=== PATIENT | male | born 1975 | race Caucasian/White ===

== ENCOUNTER 2017-03-12 03:27 | Emergency (ER) | payer BC, OTHER ==
[~2017-03-12] VITALS: Ht 165.1 cm; Wt 97.0 kg
[~2017-03-12 03:27] MED LIST: PAIN MED
[2017-03-12 03:40] VITALS: Ht 165.1 cm; Wt 97.0 kg
[2017-03-12] MEDS ORDERED: NAPR-260 PO (04:43)
--- NOTE | 2017-03-12 06:07 | ERD ---
ER Documentation Chief Complaint Date/Time DATE: 03/12/17 TIME: 06:04 Chief Complaint TRINI leg pain x 2 months. Denies injury/trauma HPI This patient is a 41-year-old male with no significant medical history presenting to the emergency department with complaints of a "tingling" feeling in his bilateral legs ongoing intermittently for the past 3 months. The patient denies having history of diabetes. He states that symptoms are worse with standing. Symptoms are alleviated with walking. The patient denies fevers , chills, or other symptoms currently. ROS All systems reviewed and are negative except as per history of present illness. Medications Home Meds Active Scripts Naproxen* (Naprosyn*) 500 Mg Tablet, 500 MG PO BID Y for PAIN AND/OR INFLAMMATION, #30 TAB Prov:GREGOR WHITT PA-C 03/12/17 Reported Medications [Pain Med] No Conflict Check 10/28/10 Allergies Allergies: Coded Allergies: No Known Allergy (Verified , 12/08/11) PMhx/Soc History of Surgery: Yes (APPY) Anesthesia Reaction: No Hx Neurological Disorder: No Hx Respiratory Disorders: No Hx Cardiac Disorders: No Hx Psychiatric Problems: No Hx Miscellaneous Medical Probl: No Hx Alcohol Use: No Hx Substance Use: No Hx Tobacco Use: No Smoking Status: Never smoker Physical Exam Vitals Vital Signs Date Time Temp Pulse Resp B/P Pulse Ox O2 Delivery O2 Flow Rate FiO2 03/12/17 03:40 98.7 63 18 111/69 100 Physical Exam Const: Obese male in no acute distress. Head: Atraumatic Eyes: Normal Conjunctiva ENT: Normal External Ears, Nose and Mouth. Neck: Full range of motion..~ No meningismus. Resp: Clear to auscultation bilaterally Cardio: Regular rate and rhythm, no murmurs Abd: Soft, non tender, non distended. Normal bowel sounds Skin: No petechiae or rashes Back: No midline or flank tenderness Ext: No cyanosis, or edema. The patient has some decreased sensation to bilateral plantar surfaces. Neur: Awake and alert Psych: Normal Mood and Affect Procedures/MDM 41-year-old male presents to the emergency department with complaints of tingling sensation to bilateral lower extremities. On exam the patient has glossitis noted to bilateral lower extremities below the knee. He has decreased sensation of the plantar surfaces of his feet bilaterally. History and clinical examination is concerning for peripheral neuropathy. The patient was urged to follow-up with his primary care physician closely for further testing and screening for diabetes and other chronic illnesses. He agreed with the discharge plan and diagnosis. He is given a prescription for naproxen to manage his symptoms as an outpatient. Strict ER return precautions were discussed. Close follow-up with a primary care physician was advised. I low suspicion for life-threatening emergency at this time. I do not feel Accu-Chek was indicated at this time because the patient had no signs of diabetic ketoacidosis or other emergencies. Departure Diagnosis: Primary Impression: Peripheral neuropathy Condition: Fair Patient Instructions: Neuropathy, Peripheral Additional Instructions: Follow up with your PCP within the next 1-3 days for a repeat evaluation. If you require a referral to a specialist, your Primary Care Provider may be able to provide this for you. In most patient cases, a referral is not required. If you have further questions regarding this matter, please ask your Primary Care Provider. Return the the emergency department immediately if symptoms worsen or change. If you have any questions regarding medications, ask your pharmacist or us before you leave. If any adverse reactions, occur while taking your medications, discontinue the treatment and return to the emergency department immediately. If any new or worsening symptoms, uncontrolled fevers, or other unexplained symptoms occur, return to the emergency department immediately. Take your medications as directed, and complete the entire course of treatment. GREGOR WHITT PA-C Mar 12, 2017 06:07
== END 2017-03-12 05:07 | disposition home or self-care (01) ==
LOC: FTE 03:27
DX: G62.9 Polyneuropathy, unspecified (principal)
CPT/HCPCS: 99283

== ENCOUNTER 2017-08-10 08:44 | Emergency (ER) | payer OTHER ==
[~2017-08-10] VITALS: Wt 88.6 kg
[~2017-08-10 08:44] MED LIST changes: +NAPR-260 PO
[2017-08-10] MEDS ORDERED: ONDANSETRON (ODT) 4 MG TAB ODT STA (09:34)
[2017-08-10] MEDS ORDERED: FAMOTIDINE 20 MG TAB PO STA (09:34)
[2017-08-10] MEDS ORDERED: SOD CHLORIDE 0.9% 500 ML IV STA (09:34)
[2017-08-10 09:59] LABS: BASOPHIL # 0.1 10^3/ul (0.0-0.1); BASOPHILS % 0.5 % (0.0-2.0); EOSINOPHILS # 0.2 10^3/ul (0.0-0.5); EOSINOPHILS % 2.4 % (0.0-7.0); HEMATOCRIT 44.6 % (42.0-52.0); HEMOGLOBIN 14.4 g/dl (14.0-18.0); LYMPHOCYTES # 3.7 10^3/ul (0.8-2.9); LYMPHOCYTES % 37.1 % (15.0-51.0); MEAN CORPUSCULAR HEMOGLOBIN 24.6 pg (29.0-33.0); MEAN CORPUSCULAR HGB CONC 32.3 g/dl (32.0-37.0); MEAN CORPUSCULAR VOLUME 76.1 fl (82.0-101.0); MEAN PLATELET VOLUME 10.1 fl (7.4-10.4); MONOCYTE # 0.7 10^3/ul (0.3-0.9); MONOCYTES % 7.5 % (0.0-11.0); NEUTROPHIL # 5.2 10^3/ul (1.6-7.5); NEUTROPHILS % 52.4 % (39.0-77.0); PLATELET COUNT 237 10^3/UL (140-415); RED BLOOD COUNT 5.86 10^6/ul (4.70-6.10); RED CELL DISTRIBUTION WIDTH 14.7 % (11.5-14.5); WHITE BLOOD COUNT 9.9 10^3/ul (4.8-10.8)
[2017-08-10 10:20] LABS: ADD UMIC NO; UR ASCORBIC ACID NEGATIVE (NEGATIVE); UR BILIRUBIN (Dip) NEGATIVE (NEGATIVE); UR BLOOD (Dip) NEGATIVE (NEGATIVE); UR CLARITY CLEAR (CLEAR); UR COLOR STRAW (YELLOW); UR GLUCOSE (Dip) NEGATIVE (NEGATIVE); UR KETONES (Dip) NEGATIVE (NEGATIVE); UR LEUKOCYTE ESTERASE (Dip) NEGATIVE Leu/ul (NEGATIVE); UR NITRITE (Dip) NEGATIVE (NEGATIVE); UR SPECIFIC GRAVITY (Dip) 1.012 (1.003-1.030); UR TOTAL PROTEIN (Dip) NEGATIVE (NEGATIVE); UR UROBILINOGEN (Dip) NEGATIVE (NEGATIVE)
[2017-08-10 10:38] LABS: ALBUMIN 4.3 g/dl (3.3-4.9); ALBUMIN/GLOBULIN RATIO 1.26; BILIRUBIN,INDIRECT 0.2 mg/dl (0-1.1); BILIRUBIN,TOTAL 0.2 mg/dl (0.2-1.3); CALCIUM 9.8 mg/dl (8.4-10.2); CREATININE 1.02 mg/dl (0.61-1.24); POTASSIUM 3.8 mmol/L (3.5-5.1); TOTAL PROTEIN 7.7 g/dl (6.1-8.1)
--- NOTE | 2017-08-10 11:24 | RADRPT ---
PROCEDURE: CT Abdomen and Pelvis without contrast. CLINICAL INDICATION: Abdominal pain TECHNIQUE: CT scan of the abdomen and pelvis was performed on a multidetector high-resolution CT s canner without intravenous contrast. Coronal and sagittal reformatted images were obtained from the axial source images. Images were reviewed on a high-resolution PACS workstation. The total exam CTD I equals 17mGy and the total exam DLP equals 1096mGy-cm. One or more of the following dose reduction techniques were used: Automated exposure control, Adjustment of the mA and/or kV according to patie nt size, and/or use of iterative reconstruction technique. DICOM images are available. COMPARISON: Abdominal CT 07/27/2012 FINDINGS: Evaluation of the solid organs is limited given the lack of intravenous contrast administration. The lung bases are clear. Hypoattenuation of the liver. The pancreas, spleen, and adrenals are grossly unremarkable. No focal pericholecystic inflammatory changes. No hydronephrosis. No renal or ureteral stone. No bowel obstruction. The appendix is not visualized but there is no focal inflammatory stranding i n the right lower quadrant. No significant retroperitoneal lymphadenopathy, ascites or evidence of pneumoperitoneum. IMPRESSION: No acute intra abdominal process identified. No evidence of bowel obstruction or appendicitis. No renal or ureteral stone. Hepatic steatosis. RPTAT: AA .Stephen Cox MD, Date Time Electronically viewed and signed by .Stephen Cox MD, on 08/10/2017 11:23 .T/
--- NOTE | 2017-08-10 11:40 | ERD ---
ER Documentation Chief Complaint Chief Complaint BACK PAIN, ABD PAIN, BLOATING, NO N/V/D HPI 42y/o male patient with no significant medical history, presents to the emergency department c/o gradual onset of right lower quadrant abdominal pain, constant, that started 2 days ago. The pain is colicky, rated 6/10, radiated to the right flank. The symptoms are associated with nausea and decreased appetite. Aggravating factors: Unknown. Alleviating factors: Unknown. Denies fever, chills, no constipation, no diarrhea, no vomiting. No history of previous episodes. Treatment attempted: None. Previous evaluation: None. History was given by patient. ROS SYSTEMIC symptoms: no fever, chills, no night sweats, no weight loss EYE symptoms: No blurred vision, no eye discharge OTOLARYNGEAL symptoms: No hearing loss. No ear pain, no sore throat CARDIOVASCULAR symptoms: No chest pain or discomfort, no palpitations. PULMONARY symptoms: No dyspnea, no cough, no wheezing. GASTROINTESTINAL symptoms: Per HPI MUSCULOSKELETAL symptoms: No arthralgias, no muscle aches. NEUROLOGY symptoms: No confusion, no syncope, no numbness or tingling. SKIN: No rashes Medications Home Meds Active Scripts Metoclopramide* (Reglan*) 10 Mg Tablet, 10 MG PO Q6 Y for NAUSEA AND/OR VOMITING for 3 Days, #10 TAB Prov:ZEB KIRKLAND MD 08/10/17 Ranitidine Hcl* (Zantac*) 150 Mg Tablet, 150 MG PO BID Y for EPIGASTRIC PAIN, # 30 TAB Prov:ZEB KIRKLAND MD 08/10/17 Hydrocodone/Acetaminophen ([place] 5-325 Tablet) 1 Each Tablet, 1 TAB PO Q6H Y for PAIN, #12 TAB Prov:ZEB KIRKLAND MD 08/10/17 Naproxen* (Naprosyn*) 500 Mg Tablet, 500 MG PO BID Y for PAIN AND/OR INFLAMMATION, #30 TAB Prov:GREGOR WHITT PA-C 03/12/17 Reported Medications [Pain Med] No Conflict Check 10/28/10 Allergies Allergies: Coded Allergies: No Known Allergy (Verified , 08/10/17) PMhx/Soc History of Surgery: Yes (APPY) Anesthesia Reaction: No Hx Neurological Disorder: No Hx Respiratory Disorders: No Hx Cardiac Disorders: No Hx Psychiatric Problems: No Hx Miscellaneous Medical Probl: No Hx Alcohol Use: No Hx Substance Use: No Hx Tobacco Use: No Smoking Status: Never smoker Physical Exam Vitals Vital Signs Date Time Temp Pulse Resp B/P Pulse Ox O2 Delivery O2 Flow Rate FiO2 08/10/17 08:48 97.6 58 17 109/57 100 Physical Exam Patient is in no acute distress, vital signs stable. Alert and fully oriented. EYES: PERRLA, EOMI, Sclera and conjunctiva appear normal. EARS: Canals clear, tympanic membranes WNL THROAT: Normal oropharynx. NECK: Supple, No lymphadenopathy. Full ROM without pain or tenderness. HEART: RRR, no rubs, murmurs, clicks or gallops. LUNGS: Clear to auscultation. ABDOMEN: Soft, mild tenderness to deep palpation of right lower quadrant, no masses, no peritoneal signs EXTREMITIES: No edema bilaterally. BACK: Full ROM, no deformity, normal back exam NEURO: Cranial nerves grossly intact, no motor or sensory deficit Result Diagram: 08/10/17 0950 08/10/17 0950 Results 24 hrs Laboratory Tests Test 08/10/17 09:50 White Blood Count 9.910^3/ul Red Blood Count 5.8610^6/ul Hemoglobin 14.4g/dl Hematocrit 44.6% Mean Corpuscular Volume 76.1fl Mean Corpuscular Hemoglobin 24.6pg Mean Corpuscular Hemoglobin Concent 32.3g/dl Red Cell Distribution Width 14.7% Platelet Count 12165^3/UL Mean Platelet Volume 10.1fl Neutrophils % 52.4% Lymphocytes % 37.1% Monocytes % 7.5% Eosinophils % 2.4% Basophils % 0.5% Nucleated Red Blood Cells % 0.0/100WBC Neutrophils # 5.210^3/ul Lymphocytes # 3.710^3/ul Monocytes # 0.710^3/ul Eosinophils # 0.210^3/ul Basophils # 0.110^3/ul Nucleated Red Blood Cells # 0.010^3/ul Urine Color STRAW Urine Clarity CLEAR Urine pH 5.0 Urine Specific [place] 1.012 Urine Ketones NEGATIVEmg/dL Urine Nitrite NEGATIVEmg/dL Urine Bilirubin NEGATIVEmg/dL Urine Urobilinogen NEGATIVEmg/dL Urine Leukocyte Esterase NEGATIVELeu/ul Urine Hemoglobin NEGATIVEmg/dL Urine Glucose NEGATIVEmg/dL Urine Total Protein NEGATIVEmg/dl Sodium Level 142mmol/L Potassium Level 3.8mmol/L Chloride Level 100mmol/L Carbon Dioxide Level 31mmol/L Anion Gap 15 Blood Urea Nitrogen 15mg/dl Creatinine 1.02mg/dl Glucose Level 105mg/dl Calcium Level 9.8mg/dl Total Bilirubin 0.2mg/dl Direct Bilirubin 0.00mg/dl Indirect Bilirubin 0.2mg/dl Aspartate Amino Transf (AST/SGOT) 27IU/L Alanine Aminotransferase (ALT/SGPT) 42IU/L Alkaline Phosphatase 67IU/L Total Protein 7.7g/dl Albumin 4.3g/dl Globulin 3.40g/dl Albumin/Globulin Ratio 1.26 Lipase 132U/L Current Medications Medications (Trade) Dose Ordered Sig/Bianca Route PRN Reason Start Time Stop Time Status Last Admin Dose Admin Sodium Chloride (NS) 500 ml @ 500 mls/hr Q1H STAT IV 08/10/17 09:34 08/10/17 10:33 DC 08/10/17 09:41 Famotidine (Pepcid) 20 mg ONCE STAT PO 08/10/17 09:34 08/10/17 09:37 DC 08/10/17 09:40 Ondansetron HCl (Zofran Odt) 4 mg ONCE STAT ODT 08/10/17 09:34 08/10/17 09:37 DC 08/10/17 09:40 [place] [id number] Radiology Main Line: [phone] DIAGNOSTIC IMAGING REPORT Patient: BRENDAN MARRUFO : 1975 Age: 42 Sex: M MR #: [id number] DOS: 08/10/17 0934 Ordering MD: ZEB KIRKLAND MD Location: [facility] Room/Bed: PROCEDURE: CT Abdomen and Pelvis without contrast. CLINICAL INDICATION: Abdominal pain TECHNIQUE: CT scan of the abdomen and pelvis was performed on a multidetector high-resolution CT scanner without intravenous contrast. Coronal and sagittal reformatted images were obtained from the axial source images. Images were reviewed on a high-resolution PACS workstation. The total exam CTDI equals 17mGy and the total exam DLP equals 1096mGy-cm. One or more of the following dose reduction techniques were used: Automated exposure control, Adjustment of the mA and/or kV according to patient size, and/or use of iterative reconstruction technique. DICOM images are available. COMPARISON: Abdominal CT 07/27/2012 FINDINGS: Evaluation of the solid organs is limited given the lack of intravenous contrast administration. The lung bases are clear. Hypoattenuation of the liver. The pancreas, spleen, and adrenals are grossly unremarkable. No focal pericholecystic inflammatory changes. No hydronephrosis. No renal or ureteral stone. No bowel obstruction. The appendix is not visualized but there is no focal inflammatory stranding in the right lower quadrant. No significant retroperitoneal lymphadenopathy, ascites or evidence of pneumoperitoneum. IMPRESSION: No acute intra abdominal process identified. No evidence of bowel obstruction or appendicitis. No renal or ureteral stone. Hepatic steatosis. RPTAT: AA .Stephen Cox MD, MD Date Time Electronically viewed and signed by .Stephen Cox MD, MD on 08/10/2017 11:23 .T/ CC: ZEB KIRKLAND MD Procedures/[facility] 42y/o male patient previously healthy, presents to the ED c/o right lower quadrant abdominal pain for 2 days. Vital signs stable, Physical exam unremarkable, except for mild tenderness to deep palpation in right lower quadrant. No peritoneal signs. Differential diagnosis include but not limited to: UTI, colitis, gastroenteritis, kidney stones, irritable bowel syndrome, inflammatory bowel syndrome, malabsorption syndrome, cholelithiasis, food intolerance, medication side effect, pancreatitis, diverticulitis, bowel obstruction. Pertinent Data: Labs: CBC: normal, CMP: normal kidney and liver function, normal electrolytes. Lipase: normal Radiology: CT abdomen: No acute intra abdominal process identified. No evidence of bowel obstruction or appendicitis. No renal or ureteral stone. Hepatic steatosis. Physical examination and clinical presentation consistent most likely with noninfectious gastroenteritis. During the ED course the patient remained stable, no new complaints. The patient received treatment with IV fluids, Pepcid, Zofran presenting overall improvement of the symptoms. Results and clinical impression discussed with patient who agrees with management. The patient is stable to be treated outpatient and will be discharged home with a Rx for ranitidine, Reglan and [place], some side effects of prescribed medications (headache, rash, nausea, vomiting, diarrhea, drowsiness, habituation, bleeding, hypertension, interactions with other medications) were reviewed. The patient was instructed to follow up with the primary care provider in the next 48h. If symptoms persist, worsen or new symptoms develop, then patient should return to the ED immediately. Instructions explained and given directly by me to the patient in Nepali with acknowledgment and demonstrated understanding. Disclaimer: Inadvertent spelling and grammatical errors are likely due to EHR/ dictation software use and do not reflect on the overall quality of patient care. Also, please note that the electronic time recorded on this note does not necessarily reflect the actual time of the patient encounter. Departure Diagnosis: Primary Impression: Gastroenteritis Additional Impression: Abdominal pain Condition: Stable Additional Instructions: Call your primary care doctor TOMORROW for an appointment during the next 1-2 days. See the doctor sooner or return here if your condition worsens before your appointment time. Thank you very much for allowing us to participate in your care. Your health and safety is our top priority at [facility]. Have prescriptions filled and follow precisely the directions on the label. Follow-up with primary care provider during the next 4 days and bring all the information and medications prescribed. If illness has not improved in 2 days, then make an appointment with primary care provider. If the provider is unavailable, return to the Emergency Department immediately. ZEB KIRKLAND MD Aug 10, 2017 11:40
[2017-08-10] MEDS ORDERED: METO10TA92 PO (11:58)
[2017-08-10] MEDS ORDERED: HYDR-906 PO (11:58)
[2017-08-10] MEDS ORDERED: RANI150T9 PO (11:58)
[2017-08-10 12:13] VITALS: BP 101/66; PULSE 72; RESP 15; TEMP 97.6
== END 2017-08-10 12:05 | disposition home or self-care (01) ==
LOC: FTE 08:44
DX: K52.9 Noninfective gastroenteritis and colitis, unspecified (principal)
CPT/HCPCS: 36415; 74176; 80053; 81003; 83690; 85025; J7040; Z7502; Z7610